=== PATIENT | male | born 1930 | race Caucasian/White ===

== ENCOUNTER 2017-09-10 07:07 | Emergency (ER) | payer MEDICARE ==
[~2017-09-10] VITALS: Ht 182.9 cm; Wt 89.9 kg
[~2017-09-10 07:07] MED LIST: ASPI-1053 PO; FIBER CAPSULES PO; LOSA50TA3 PO; OMEG1CAP2 PO; ZOC5T PO
[2017-09-10 07:08] VITALS: BP 171/91
[2017-09-10] MEDS ORDERED: AMOX-580 PO (07:35)
[2017-09-10] MEDS ORDERED: FLUT16SP2 BOTHNARES (07:35)
== END 2017-09-10 07:44 | disposition home or self-care (01) ==
LOC: ER 07:08
DX: J32.9 Chronic sinusitis, unspecified (principal); I10 Essential (primary) hypertension; Z79.82 Long term (current) use of aspirin
CPT/HCPCS: 71045; 99283

== ENCOUNTER 2019-01-21 08:15 | Emergency (ER) | payer MEDICARE ==
[~2019-01-21] VITALS: Ht 182.9 cm; Wt 86.4 kg
[~2019-01-21 08:15] MED LIST changes: +FLUT16SP2 BOTHNARES; +SIMV5TAB58 PO; -ZOC5T PO
[2019-01-21 08:25] VITALS: BP 132/76
[2019-01-21] MEDS ORDERED: LIDOcaine 1% 30ml preserv. free vial IJ ONE (09:25)
[2019-01-21] MEDS ORDERED: TETanus/Pertussis (Acell)/Diphther VAC/PF (Tdap-Adult) 0.5ml syringe IM ONE (09:25)
[2019-01-21] MEDS ORDERED: CEPH-572 PO (09:47)
--- NOTE | 2019-01-25 14:23 | NUR ---
PT CALLED AND NOTIFED THAT THE ABX PERSCRIBED WAS NOT EFFECTIVE ON THE BACTERIA GROWN IN THE WOUND CULTURE. PT INFORMED TO STOP THE KEFLEX AND AN RX FOR LEVAQUIN 500MG PO DAILY FOR 10 DAYS WOULD BE CALLED TO HIS PHARMACY. REQUESTED THAT RX BE CALLED INTO [facility] ON [address]. LEVAQUIN 500MG PO DAILY X10 DAYS CALLED REQUESTED
== END 2019-01-21 10:10 | disposition home or self-care (01) ==
LOC: ER 08:15
DX: L02.511 Cutaneous abscess of right hand (principal); I10 Essential (primary) hypertension; Z79.82 Long term (current) use of aspirin; Z79.899 Other long term (current) drug therapy
CPT/HCPCS: 26010; 87070; 87077; 87186; 90471; 90715; 99283; J2001; 10060; 99284

== ENCOUNTER 2019-01-23 10:00 | Emergency (ER) | payer MEDICARE ==
[~2019-01-23] VITALS: Ht 185.4 cm; Wt 90.0 kg
[~2019-01-23 10:00] MED LIST changes: +CEPH-572 PO
[2019-01-23 10:04] VITALS: BP 148/56
== END 2019-01-23 11:00 | disposition home or self-care (01) ==
LOC: ER 10:00
DX: L03.011 Cellulitis of right finger (principal); I10 Essential (primary) hypertension; Z48.01 Encounter for change or removal of surgical wound dressing; Z79.82 Long term (current) use of aspirin; Z79.2 Long term (current) use of antibiotics; Z79.899 Other long term (current) drug therapy
CPT/HCPCS: 99281

== ENCOUNTER 2019-02-02 10:07 | Emergency (ER) | payer MEDICARE ==
[~2019-02-02] VITALS: Ht 182.9 cm; Wt 86.4 kg
[~2019-02-02 10:07] MED LIST changes: -CEPH-572 PO
[2019-02-02] MEDS ORDERED: LINE600T14 PO (12:20)
[2019-02-02 12:37] VITALS: BP 126/67
== END 2019-02-02 12:39 | disposition home or self-care (01) ==
LOC: ER 10:07
DX: L03.011 Cellulitis of right finger (principal); I10 Essential (primary) hypertension; Z79.82 Long term (current) use of aspirin; Z79.2 Long term (current) use of antibiotics; Z79.899 Other long term (current) drug therapy
CPT/HCPCS: 73140; 99283

== ENCOUNTER 2020-06-12 17:07 | Emergency (ER) | payer MEDICARE ==
[~2020-06-12] VITALS: Ht 182.9 cm; Wt 90.0 kg
[~2020-06-12 17:07] MED LIST changes: +LINE600T14 PO
[2020-06-12 18:35] LABS: BASOPHILS % (AUTO) 0.7 % (0-1); EOSINOPHILS % (AUTO) 0.8 % (0-6); HEMATOCRIT 40.1 % (42.0-52.0); HEMOGLOBIN 13.5 g/dl (14.0-17.9); LYMPHOCYTES # (AUTO) 0.9 X10'3 (1.1-4.8); LYMPHOCYTES % (AUTO) 20.6 % (21-51); MEAN CORPUSCULAR HGB CONC 33.7 g/dL (33.0-36.5); MEAN CORPUSCULAR VOLUME 94.9 FL (78-98); MEAN PLATELET VOLUME 8.4 FL (7.4-10.4); MONOCYTES # (AUTO) 0.8 X10'3 (0-0.9); MONOCYTES % (AUTO) 18.1 % (2-12); NEUTROPHILS # (AUTO) 2.6 X10'3 (1.8-7.7); NEUTROPHILS % (AUTO) 59.8 % (42-75); PLATELET COUNT 194 X10'3 (140-440); RED BLOOD COUNT 4.23 X10'6 (4.70-6.10); RED CELL DISTRIBUTION WIDTH 14.1 % (11.5-14.5); WHITE BLOOD COUNT 4.3 X10'3 (4.5-11.0)
[2020-06-12 18:42] LABS: ANION GAP 10 (8-16); ASPARTATE AMINO TRANSFERASE 4 U/L (10-37); BILIRUBIN,TOTAL 0.4 MG/DL (0.1-1.0); CHLORIDE 107 MMOL/L (99-107); POTASSIUM 4.2 MMOL/L (3.5-5.1); SODIUM 142 MMOL/L (135-145)
[2020-06-12] MEDS ORDERED: normal saline 1000ML IV soln IVB ONE (18:45)
[2020-06-12 18:55] LABS: ALANINE AMINOTRANSFERASE 18 U/L (12-78); ALBUMIN 3.4 G/DL (3.4-5.0); ALBUMIN/GLOBULIN RATIO 0.9 (1.1-1.5); ALKALINE PHOSPHATASE 89 IU/L (46-116); BLOOD UREA NITROGEN 26 MG/DL (7-18); BUN/CREATININE RATIO 11.4 (5.4-32.0); CREATININE 2.29 MG/DL (0.60-1.10); GLUCOSE 105 MG/DL (70-104); TOTAL PROTEIN 7.3 G/DL (6.4-8.2); eGFR 27 ML/MIN
[2020-06-12] MEDS ORDERED: dexamethasone sod phosphate 10mg/ml inj IV STA (19:01)
--- NOTE | 2020-06-12 19:25 | NUR ---
PT'S SON MARKEL WILL BE PT'S TRANSPORTATION
--- NOTE | 2020-06-12 19:47 | NUR ---
[facility] [phone] [facility]
[2020-06-12 19:57] LABS: PARTIAL THROMBOPLASTIN TIME 25 SECONDS (22-32)
[2020-06-12] MEDS ORDERED: METH4TAB81 PO (20:09)
[2020-06-12 20:31] LABS: C-REACTIVE PROTEIN 0.43 MG/DL (0.0-0.5)
[2020-06-12 20:48] LABS: PLATELET ESTIMATE NORMAL; TOTAL CELLS COUNTED 100
[2020-06-12 21:11] VITALS: BP 167/88
== END 2020-06-12 21:13 | disposition home or self-care (01) ==
LOC: ER 17:08
DX: U07.1 COVID-19 (principal); R05 Cough; N18.9 Chronic kidney disease, unspecified; I12.9 Hypertensive chronic kidney disease with stage 1 through stage 4 chronic kidney disease, or unspecified chronic kidney disease; Z79.899 Other long term (current) drug therapy; Z79.82 Long term (current) use of aspirin
CPT/HCPCS: 36415; 71045; 80053; 82728; 83615; 83880; 84145; 84443; 84484; 85007; 85025; 85384; 85610; 85730; 86140; 87502; 87503; 87635; 93005; 96361; 96374; 99285; C9803; J1100; J7030; 96365

== ENCOUNTER 2020-06-18 12:24 | Emergency (ER) | payer MEDICARE ==
[~2020-06-18 12:24] MED LIST changes: +METH4TAB81 PO
--- NOTE | 2020-06-18 13:49 | NUR ---
Attempted IV access without success. Bandage applied, cath tip intact, no complications noted.
[2020-06-18 15:14] LABS: BASOPHILS % (AUTO) 0.5 % (0-1); EOSINOPHILS % (AUTO) 0.1 % (0-6); HEMATOCRIT 44.2 % (42.0-52.0); HEMOGLOBIN 14.7 g/dl (14.0-17.9); LYMPHOCYTES # (AUTO) 0.8 X10'3 (1.1-4.8); LYMPHOCYTES % (AUTO) 9.8 % (21-51); MEAN CORPUSCULAR HEMOGLOBIN 31.2 PG (27.0-31.0); MEAN CORPUSCULAR HGB CONC 33.3 g/dL (33.0-36.5); MEAN CORPUSCULAR VOLUME 93.8 FL (78-98); MONOCYTES # (AUTO) 0.7 X10'3 (0-0.9); MONOCYTES % (AUTO) 8.5 % (2-12); NEUTROPHILS # (AUTO) 6.9 X10'3 (1.8-7.7); NEUTROPHILS % (AUTO) 81.1 % (42-75); PLATELET COUNT 244 X10'3 (140-440); RED BLOOD COUNT 4.71 X10'6 (4.70-6.10); RED CELL DISTRIBUTION WIDTH 14.2 % (11.5-14.5); WHITE BLOOD COUNT 8.4 X10'3 (4.5-11.0)
[2020-06-18 15:28] LABS: ALANINE AMINOTRANSFERASE 25 U/L (12-78); ALBUMIN 3.4 G/DL (3.4-5.0); ALBUMIN/GLOBULIN RATIO 0.9 (1.1-1.5); ALKALINE PHOSPHATASE 92 IU/L (46-116); ANION GAP 8 (8-16); ASPARTATE AMINO TRANSFERASE 11 U/L (10-37); BILIRUBIN,TOTAL 0.5 MG/DL (0.1-1.0); BLOOD UREA NITROGEN 37 MG/DL (7-18); BUN/CREATININE RATIO 17.4 (5.4-32.0); CALCIUM 9.1 MG/DL (8.5-10.1); CHLORIDE 104 MMOL/L (99-107); CREATININE 2.13 MG/DL (0.60-1.10); GLUCOSE 110 MG/DL (70-104); POTASSIUM 4.2 MMOL/L (3.5-5.1); SODIUM 140 MMOL/L (135-145); TOTAL CARBON DIOXIDE 27.6 MMOL/L (24-32); TOTAL PROTEIN 7.3 G/DL (6.4-8.2); eGFR 29 ML/MIN
[2020-06-18] MEDS ORDERED: normal saline 1000ML IV soln IVB ONE (15:35)
[2020-06-18] MEDS ORDERED: [UNRECOGNIZED DRUG - OTHER] IV ONE (15:35)
[2020-06-18 20:12] VITALS: BP 106/72
== END 2020-06-18 19:20 | disposition home or self-care (01) ==
LOC: ER 12:25
DX: U07.1 COVID-19 (principal); R06.02 Shortness of breath; R53.83 Other fatigue; R05 Cough; I10 Essential (primary) hypertension; Z79.82 Long term (current) use of aspirin; Z79.899 Other long term (current) drug therapy
CPT/HCPCS: 36415; 71045; 80053; 83605; 85025; 93005; 96365; 99291; J7030; J7050